=== PATIENT | female | born 1960 ===

== ENCOUNTER 2024-02-04 19:12 | Emergency (ER) | payer OTHER ==
[~2024-02-04] VITALS: Ht 149.9 cm; Wt 68.0 kg
[2024-02-04 19:16] VITALS: TEMP 98.9
[2024-02-04] MEDS ORDERED: METO25XL PO (19:21)
[2024-02-04] MEDS ORDERED: ATOR10TA69 PO (19:25)
[2024-02-04] MEDS ORDERED: PIOG30TA70 PO (19:25)
[2024-02-04] MEDS ORDERED: METF-1211 PO (19:25)
[2024-02-04] MEDS ORDERED: FENO160T16 PO (19:25)
[2024-02-04 21:00] VITALS: BP 132/70; PULSE 70; RESP 16; O2SAT 100
== END 2024-02-04 21:21 | disposition home or self-care (01) ==
LOC: EMS 19:12
DX: S09.90XA Unspecified injury of head, initial encounter (principal); I10 Essential (primary) hypertension; W01.0XXA Fall on same level from slipping, tripping and stumbling without subsequent striking against object, initial encounter; Y93.89 Activity, other specified; Y92.89 Other specified places as the place of occurrence of the external cause; Y99.8 Other external cause status
CPT/HCPCS: 70450; 99284